=== PATIENT | male | born 1970 | race Two or more races ===

== ENCOUNTER 2020-08-25 18:10 | Inpatient (IN) | payer BC, OTHER ==
[~2020-08-25] VITALS: Ht 175.3 cm; Wt 97.9 kg
[2020-08-25] MEDS ORDERED: AZITHROMYCIN 500MG/ 250ML 250 ML IV ONE (18:45)
[2020-08-25] MEDS ORDERED: ASCORBIC ACID 500 MG TAB PO ONE (18:45)
[2020-08-25] MEDS ORDERED: ZINC SULFATE 220mg CAP or TAB PO ONE (18:45)
[2020-08-25] MEDS ORDERED: DexAMETHasone SOD PHOS 10MG/1ML VIAL INJ IV ONE (18:45)
[2020-08-25] MEDS ORDERED: cefTRIAXone 1GM/50ML D5W 50 ML IV ONE (18:45)
[2020-08-25] MEDS ORDERED: ACETAMINOPHEN 325 MG TAB PO ONE (18:45)
[2020-08-25 19:15] LABS: Basophils # (auto) 0 10 ^3/uL (0-0.2); Basophils % (auto) 0.1 % (0.0-2.0); Eosinophils # (auto) 0 10 ^3/uL (0-0.8); Hematocrit 46.8 % (41.0-53.0); Hemoglobin 16.1 g/dL (13.5-17.5); Lymphocytes # (auto) 0.9 10 ^3/uL (0.4-5.4); Lymphocytes % (auto) 14.4 % (10.0-50.0); Mean Corpuscular Hemoglobin 29.6 pg (28.0-32.0); Mean Corpuscular Hgb Conc. 34.3 g/dL (32.0-36.0); Mean Corpuscular Volume 86.2 fL (80.0-100.0); Monocytes # (auto) 0.4 10 ^3/uL (0-1.3); Neutrophils # (auto) 4.9 10 ^3/uL (1.6-8.6); Neutrophils % (auto) 79.5 % (37.0-80.0); Nucleated Red Blood Cells % 0.1 %; Platelet Count (auto) 191 10^3/uL (140-450); Red Blood Cells 5.43 10^6/uL (4.5-5.90); White Blood Cell 6.2 10^3/uL (4.4-10.8)
[2020-08-25 19:26] LABS: Albumin 3.1 g/dL (3.4-5.0); Anion Gap 7 (5-15); Blood Urea Nitrogen 18 mg/dL (7-18); Calcium 8.1 mg/dL (8.5-10.1); Carbon Dioxide 25 mmol/L (21-32); Chloride 102 mmol/L (98-107); Glucose 245 mg/dL (74-106); Potassium 3.2 mmol/L (3.5-5.1); Sodium 134 mmol/L (136-145)
[2020-08-25 19:35] LABS: Alanine Aminotransferase 93 U/L (16-61); Alkaline Phosphatase 101 U/L (45-117); Aspartate Aminotransferase 88 U/L (15-37); BUN/Creatinine Ratio 16.8; Bilirubin, Total 0.4 mg/dL (0.2-1.0); CRP High Sensitivity 5.92 mg/dL (< 0.3); GFR African American 94 mL/min; GFR Non-African American 78 mL/min; Lactate Dehydrogenase 422 U/L (87-241); Total Protein 7.6 g/dL (6.4-8.2)
[2020-08-25] MEDS ORDERED: DEXTROSE (50%) 50ML SYRG IV PRN (19:45)
[2020-08-25] MEDS ORDERED: HYDROcodone-ACET 5/325MG TAB PO PRN (19:45)
[2020-08-25] MEDS ORDERED: ACETAMINOPHEN 500 MG TAB PO PRN (19:45)
[2020-08-25] MEDS ORDERED: DOCUSATE SOD 100 MG CAP PO PRN (19:45)
[2020-08-25] MEDS ORDERED: NITROGLYCERIN 0.4 MG SL TAB SL PRN (19:45)
[2020-08-25] MEDS ORDERED: ONDANSETRON HCL 4 MG/2 ML VIAL IV PRN (19:45)
[2020-08-25] MEDS ORDERED: MORPHINE SULF INJ 2 MG/ML SYRINGE 1ML IV PRN ×2 (19:45)
--- NOTE | 2020-08-25 20:08 | NUR ---
RT NOTE: PT ASSESSED FOR MDI TX, PT ON 2LPM NC SPO2 96% HR 78, RR 18. PT DENIES SOB AT THIS TIME. STATED HIS BREATHING IS FEELING BETTER. PT HAS NO PRIOR HX OF PULMONARY ISSUES BEFORE COVID RESULTS. PT NOTIFIED TO HAVE RT PAGED IF SOB OCCURS.
[2020-08-25] MEDS: ALBUTEROL SULF HFA 90MCG INH 200DOSE IN SCH (20:10)
[2020-08-25] MEDS: BUDESONIDE (INHALATION) 180 MCG IH IN SCH (20:10)
[2020-08-25 20:34] LABS: Magnesium 2.2 mg/dL (1.6-2.6)
[2020-08-25 22:00] VITALS: BP 116/73
[2020-08-25] MEDS: ACCU-CHEK COMFORT CURVE STRIP VI SCH (22:00)
--- NOTE | 2020-08-25 22:00 | NUR ---
MS/TELE admit from ER AMPO,SHAUNA admitted to tele/MS after SBAR received. Patient oriented to MARGOTH NUNEZ RN, room 245, bed B. Patient weighed by bedscale and encouraged to call if they need something. Pt is on 2L NC with even and unlabored respirations, tele box 18 showing SR in the 70's. All questions and concerns addressed, patient verbalized understanding. Bed locked, in lowest position, call light within reach, side rails up x2.
[2020-08-25 23:00] VITALS: BP 116/73
[2020-08-25] MEDS: InsuLIN REG 1unit/0.01ml Soln (100units/ml) SC SCH (23:01)
[2020-08-25 23:30] VITALS: BP 116/73
[2020-08-26] VITALS (13 sets, daily range): BP systolic 111–137; BP diastolic 65–89
--- NOTE | 2020-08-26 00:05 | NUR ---
Hospitalist paged Pt reporting having sleep apnea and using CPAP at home. No orders for CPAP for this pt
[2020-08-26] MEDS: InsuLIN REG 1unit/0.01ml Soln (100units/ml) SC SCH ×4 (06:56→21:54)
[2020-08-26] MEDS: ACCU-CHEK COMFORT CURVE STRIP VI SCH ×4 (06:56→21:52)
[2020-08-26] MEDS: BUDESONIDE (INHALATION) 180 MCG IH IN SCH ×2 (07:04→21:33)
[2020-08-26] MEDS: ALBUTEROL SULF HFA 90MCG INH 200DOSE IN SCH ×3 (07:04→21:33)
--- NOTE | 2020-08-26 07:04 | NUR ---
Respiratory note: FOUND PATIENT OFF CPAP, ON A 2L N/C. NO RESP DISTRESS NOTED. HR 91, RR 16, SPO2 95%. JEANETTE JUSTIN AT BEDSIDE. I SPOKE WITH RN ABOUT MOVING PATIENT TO A NEGATIVE PRESSURE ROOM IN ORDER FOR PATIENT TO CONTINUE USING CPAP AT NIGHT. JEANETTE JUSTIN STATED THERE WAS NO OPEN ROOMS THAT ARE NEGATIVE PRESSURE FOR PATIENT TO MOVE LAST NIGHT. RN STATED SHE WOULD SPEAK WITH CHARGE NURSE REGARDING MOVING PATIENT. WILL FOLLOW UP WITH DAYSHIFT RN. NO MDI'S AT BEDSIDE, WILL GET FROM PHARMACY.
[2020-08-26 07:21] LABS: Basophils # (auto) 0 10 ^3/uL (0-0.2); Basophils % (auto) 0.7 % (0.0-2.0); Eosinophils # (auto) 0 10 ^3/uL (0-0.8); Eosinophils % (auto) 0.1 % (0.0-7.0); Hematocrit 48.6 % (41.0-53.0); Hemoglobin 16.5 g/dL (13.5-17.5); Lymphocytes # (auto) 0.6 10 ^3/uL (0.4-5.4); Lymphocytes % (auto) 13.8 % (10.0-50.0); Mean Corpuscular Hemoglobin 29.4 pg (28.0-32.0); Mean Corpuscular Hgb Conc. 33.9 g/dL (32.0-36.0); Mean Corpuscular Volume 86.9 fL (80.0-100.0); Monocytes # (auto) 0.3 10 ^3/uL (0-1.3); Monocytes % (auto) 6.8 % (0.0-12.0); Neutrophils # (auto) 3.6 10 ^3/uL (1.6-8.6); Neutrophils % (auto) 78.6 % (37.0-80.0); Nucleated Red Blood Cells % 0.6 %; Platelet Count (auto) 203 10^3/uL (140-450); Red Blood Cells 5.59 10^6/uL (4.5-5.90); Red Cell Distribution Width 13.3 % (11.8-14.3); White Blood Cell 4.5 10^3/uL (4.4-10.8)
[2020-08-26 07:31] LABS: Albumin 3.2 g/dL (3.4-5.0); Calcium 8.5 mg/dL (8.5-10.1)
[2020-08-26 07:36] LABS: Bilirubin, Total 0.4 mg/dL (0.2-1.0); Total Protein 7.8 g/dL (6.4-8.2)
--- NOTE | 2020-08-26 09:10 | NUR ---
ROOM CHANGE Patient moved from room 245A to room 236. All personal belongings moved with patient.
[2020-08-26] MEDS: ASCORBIC ACID 1,000 MG TAB PO SCH (09:30)
[2020-08-26] MEDS: CHOLECALCIFEROL (VITD3) 2,000 UNIT CAP PO SCH (09:30)
[2020-08-26] MEDS: DexAMETHasone SOD PHOS 10MG/1ML VIAL INJ IV SCH (09:30)
[2020-08-26] MEDS: FAMOTIDINE 20 MG TAB PO SCH (09:30)
[2020-08-26] MEDS: DOXYCYCLINE 100MG/250ML 250 ML IV SCH ×2 (09:30→21:53)
[2020-08-26] MEDS: ZINC SULFATE 220mg CAP or TAB PO SCH (09:30)
--- NOTE | 2020-08-26 09:30 | NUR ---
Patients 02 @ 89% on 2L NC, increased to 3L NC, 02 at 92%. Will continue to monitor
[2020-08-26] MEDS ORDERED: INFLUENZA QUAD 2020-2021 0.5 ML SYRG IM ONE (10:00)
[2020-08-26] MEDS ORDERED: ENOXAPARIN SOD 40 MG/0.4 ML SYRINGE SC SCH (10:00)
--- NOTE | 2020-08-26 11:15 | NUR ---
Patients 02 @ 90% on 3L NC, increased to 4L NC, 02 @ 92%. Will continue to monitor.
--- NOTE | 2020-08-26 15:30 | NUR ---
Patients 02 at 91% with SOB, placed on 6L oxymizer, 02 at 95%. SOB resolved. Will continue to monitor.
[2020-08-26] MEDS ORDERED: FUROSEMIDE 20 MG/2 ML VIAL IV ONE (15:45)
[2020-08-26] MEDS ORDERED: POTASSIUM CHL 10 Meq TABLET PO ONE (15:45)
[2020-08-26] MEDS ORDERED: METF-929 PO (15:50)
--- NOTE | 2020-08-26 15:50 | NUR ---
Dr Jay called with orders placed for patient. updated on patient status
[2020-08-26] MEDS ORDERED: ATOR20TA50 PO (15:58)
--- NOTE | 2020-08-26 16:07 | NUR ---
PLASMA Patient completed convalescent plasma with no reactions. Will continue to monitor.
--- NOTE | 2020-08-26 16:11 | NUR ---
REMDESIVIR Faxed signed authorization to pharmacy for Remdesivir. Authorization in patient chart
[2020-08-26] MEDS ORDERED: REMDESIVIR 200 MG in NS 210ml LOADING DOSE ADULT IV ONE (17:00)
--- NOTE | 2020-08-26 19:10 | NUR ---
Opening Shift Note Received report from mac Downing RN. Assumed care of patient, awake and alert. No S/S of distress/SOB or pain. Saturating at 95 on 5L Oxymizer. Instructed on POC and to call for assist PRN, will continue to monitor for changes Q1hr and PRN. Bed placed in lowest position and call light within reach.
--- NOTE | 2020-08-26 20:00 | NUR ---
Patient refused flu shot stating that it will make him sick and feverish. Will monitor
[2020-08-26] MEDS: guaiFENesin-DM 100/10mg/5ml SYR PO PRN (21:52)
[2020-08-26] MEDS: ENOXAPARIN SOD 100 MG/1 ML SYRINGE SC SCH (21:52)
[2020-08-26] MEDS: INSULIN LANTUS (GLARGINE) 1 /0.01ml (100units/ml) SC SCH (21:56)
[2020-08-27 06:00] VITALS: BP 114/70
[2020-08-27] MEDS: ALBUTEROL SULF HFA 90MCG INH 200DOSE IN SCH ×4 (06:15→21:40)
[2020-08-27] MEDS: BUDESONIDE (INHALATION) 180 MCG IH IN SCH ×3 (06:15→21:40)
[2020-08-27] MEDS: ACCU-CHEK COMFORT CURVE STRIP VI SCH ×4 (06:23→22:34)
[2020-08-27] MEDS: guaiFENesin-DM 100/10mg/5ml SYR PO PRN ×2 (06:23→12:46)
[2020-08-27] MEDS: InsuLIN REG 1unit/0.01ml Soln (100units/ml) SC SCH ×4 (06:25→22:54)
[2020-08-27 07:01] LABS: Potassium 3.5 mmol/L (3.5-5.1)
[2020-08-27 07:08] LABS: Albumin 2.9 g/dL (3.4-5.0); BUN/Creatinine Ratio 25.3; Bilirubin, Total 0.4 mg/dL (0.2-1.0); Calcium 8.7 mg/dL (8.5-10.1); Total Protein 7.2 g/dL (6.4-8.2)
[2020-08-27 08:30] VITALS: BP 119/69
[2020-08-27] MEDS: ENOXAPARIN SOD 100 MG/1 ML SYRINGE SC SCH ×2 (08:43→22:34)
[2020-08-27] MEDS: FUROSEMIDE 20 MG/2 ML VIAL IV SCH (08:43)
[2020-08-27] MEDS: DexAMETHasone SOD PHOS 10MG/1ML VIAL INJ IV SCH (08:43)
[2020-08-27] MEDS: ZINC SULFATE 220mg CAP or TAB PO SCH (08:43)
[2020-08-27] MEDS: POTASSIUM CHL 10 Meq TABLET PO SCH (08:44)
[2020-08-27] MEDS: FAMOTIDINE 20 MG TAB PO SCH (08:44)
[2020-08-27] MEDS: CHOLECALCIFEROL (VITD3) 2,000 UNIT CAP PO SCH (08:44)
[2020-08-27] MEDS: ASCORBIC ACID 1,000 MG TAB PO SCH (08:44)
[2020-08-27] MEDS: DOXYCYCLINE 100MG/250ML 250 ML IV SCH (08:45)
--- NOTE | 2020-08-27 11:20 | NUR ---
ROUNDING MD SOLOMON AT BEDSIDE. UPDATED ON PATIENT STATUS. ALL QUESTIONS AND CONCERNS ADDRESSED AT THIS TIME
[2020-08-27 13:00] VITALS: BP 120/74
[2020-08-27] MEDS ORDERED: POTASSIUM CHL 20 Meq TABLET PO ONE (13:15)
[2020-08-27] MEDS ORDERED: PIPERACILLIN-TAZOB 3.375GM 100 ML IV ONE (13:15)
--- NOTE | 2020-08-27 14:25 | NUR ---
Opening Shift Note Assumed care of patient, awake and alert. No complaints of pain. Patient currently states "I am very out of breath" spo2 86% on 5L Oxymizer. Patient titrated to 8L oxymizer with spo2 93%. Instructed on POC and to call for assist PRN, will continue to monitor for changes Q1hr and PRN.
[2020-08-27] MEDS: PIPERACILLIN-TAZOB 3.375GM 100 ML IV SCH ×3 (14:30→20:04)
[2020-08-27] MEDS: PROMETHAZINE W/CODEINE 5 ML ORAL SYRUP PO PRN ×2 (14:31→22:55)
[2020-08-27 17:03] VITALS: BP 112/73
[2020-08-27] MEDS: REMDESIVIR 100mg in NS 230ml DAILYx4DAYS (NO VENT) IV SCH (17:26)
--- NOTE | 2020-08-27 17:26 | NUR ---
PREINFUSION VITAL SIGNS BP 112/73 HR 74
--- NOTE | 2020-08-27 19:45 | NUR ---
OPENING SHIFT NOTE Assumed care of patient who is A&O x4. Currently on 8L via Oxymizer. Reports SOB on exertion and dry cough. Spo2 is 97%, titrated down to 7L. Continuous pulse oximeter in place. Patient denies pain at this time. PIV in left forearm is intact and patent. Flushed with 10ml NS. POC discussed and all questions answered. Bed is in low locked position with side rails up x2. Call light is within reach and patient encouraged to call for assistance when needed. Will continue to monitor for changes PRN.
[2020-08-27 20:00] VITALS: BP 111/76
--- NOTE | 2020-08-27 21:15 | NUR ---
FAMILY Received call from Patient's . Verified password and provided update. Patient requesting to speak with attending MD and Clamshell Engineer tomorrow. Will Pass on to day shift RN.
[2020-08-27 22:00] VITALS: BP 118/47
[2020-08-27] MEDS: INSULIN LANTUS (GLARGINE) 1 /0.01ml (100units/ml) SC SCH (22:54)
--- NOTE | 2020-08-27 23:30 | NUR ---
O2 SATURATION Patient's O2 saturation decreasing to 88% Patient found sleeping on right side with Oxymizer at patient's chin. Oxymizer replaced and increased back to 8L. Spo2 increased to 95% Will continue to monitor.
[2020-08-28] MEDS: PIPERACILLIN-TAZOB 3.375GM 100 ML IV SCH ×4 (01:50→20:08)
[2020-08-28 05:56] VITALS: BP 113/78
[2020-08-28] MEDS: ACCU-CHEK COMFORT CURVE STRIP VI SCH ×4 (06:16→21:51)
[2020-08-28] MEDS: BUDESONIDE (INHALATION) 180 MCG IH IN SCH ×2 (06:26→21:27)
[2020-08-28] MEDS: ALBUTEROL SULF HFA 90MCG INH 200DOSE IN SCH ×3 (06:26→21:27)
[2020-08-28] MEDS: InsuLIN REG 1unit/0.01ml Soln (100units/ml) SC SCH ×4 (06:28→21:53)
[2020-08-28 07:05] LABS: Potassium 3.8 mmol/L (3.5-5.1)
[2020-08-28] MEDS: PROMETHAZINE W/CODEINE 5 ML ORAL SYRUP PO PRN (07:11)
[2020-08-28 07:16] LABS: Albumin 2.8 g/dL (3.4-5.0); BUN/Creatinine Ratio 25.5; Bilirubin, Total 0.5 mg/dL (0.2-1.0); Calcium 8.5 mg/dL (8.5-10.1)
--- NOTE | 2020-08-28 07:29 | NUR ---
OPENING SHIFT NOTE Assumed care of patient who is A&O x4. Currently on 12L via Oxymizer. Reports SOB on exertion and dry cough. Spo2 is 96%, titrated down to 8L. Continuous pulse oximeter in place. Patient denies pain at this time. POC discussed and all questions answered. Bed is in low locked position with side rails up x2. Call light is within reach and patient encouraged to call for assistance when needed. Will continue to monitor for changes PRN.
[2020-08-28 08:32] VITALS: BP 111/66
[2020-08-28] MEDS: FUROSEMIDE 20 MG/2 ML VIAL IV SCH (09:25)
[2020-08-28] MEDS: ZINC SULFATE 220mg CAP or TAB PO SCH (09:25)
[2020-08-28] MEDS: POTASSIUM CHL 10 Meq TABLET PO SCH (09:25)
[2020-08-28] MEDS: ENOXAPARIN SOD 100 MG/1 ML SYRINGE SC SCH ×2 (09:26→21:56)
[2020-08-28] MEDS: ASCORBIC ACID 1,000 MG TAB PO SCH (09:26)
[2020-08-28] MEDS: FAMOTIDINE 20 MG TAB PO SCH (09:26)
[2020-08-28] MEDS: CHOLECALCIFEROL (VITD3) 2,000 UNIT CAP PO SCH (09:26)
[2020-08-28] MEDS: DexAMETHasone SOD PHOS 10MG/1ML VIAL INJ IV SCH (11:55)
[2020-08-28 12:34] VITALS: BP 111/73
[2020-08-28] MEDS ORDERED: FUROSEMIDE 20 MG/2 ML VIAL IV ONE (13:30)
[2020-08-28 16:38] VITALS: BP 119/77
[2020-08-28] MEDS: REMDESIVIR 100mg in NS 230ml DAILYx4DAYS (NO VENT) IV SCH (16:48)
--- NOTE | 2020-08-28 16:48 | NUR ---
pre-infusion vital signs BP 119/77 HR 91
--- NOTE | 2020-08-28 17:03 | NUR ---
15-min vitals BP 113/71 HR 82
--- NOTE | 2020-08-28 17:48 | NUR ---
post-infusion vital signs BP 116/88 HR 81
[2020-08-28 21:27] VITALS: BP 110/75
[2020-08-28] MEDS: INSULIN LANTUS (GLARGINE) 1 /0.01ml (100units/ml) SC SCH (21:52)
[2020-08-28 21:58] VITALS: BP 110/75
[2020-08-29] MEDS: PIPERACILLIN-TAZOB 3.375GM 100 ML IV SCH ×4 (02:00→20:28)
[2020-08-29] MEDS: ACCU-CHEK COMFORT CURVE STRIP VI SCH ×4 (06:24→22:30)
[2020-08-29] MEDS: InsuLIN REG 1unit/0.01ml Soln (100units/ml) SC SCH ×4 (06:29→22:57)
[2020-08-29] MEDS: BUDESONIDE (INHALATION) 180 MCG IH IN SCH ×2 (06:55→22:06)
[2020-08-29] MEDS: ALBUTEROL SULF HFA 90MCG INH 200DOSE IN SCH ×3 (06:55→22:06)
--- NOTE | 2020-08-29 07:15 | NUR ---
Opening Shift Note Assumed care of patient, awake and alert. A/O X 4. No S/S of distress/SOB or pain. Patient on 8L Oxymizer. Instructed on POC and reinforced teaching on the use of the incentive spirometer. Prone positioning also encouraged throughout the day. Patient verbalized understanding. Safety measures in place and the call light is within reach of the patient. Will continue to monitor for changes Q1hr and PRN.
[2020-08-29 08:00] VITALS: BP 110/75
[2020-08-29 08:32] LABS: Albumin 2.9 g/dL (3.4-5.0); Calcium 8.8 mg/dL (8.5-10.1); Potassium 3.5 mmol/L (3.5-5.1)
[2020-08-29 08:37] LABS: BUN/Creatinine Ratio 24.1; Bilirubin, Total 0.6 mg/dL (0.2-1.0); Total Protein 7.5 g/dL (6.4-8.2)
[2020-08-29 09:00] VITALS: BP 104/68
[2020-08-29] MEDS: FAMOTIDINE 20 MG TAB PO SCH (10:01)
[2020-08-29] MEDS: CHOLECALCIFEROL (VITD3) 2,000 UNIT CAP PO SCH (10:01)
[2020-08-29] MEDS: DexAMETHasone SOD PHOS 10MG/1ML VIAL INJ IV SCH (10:02)
[2020-08-29] MEDS: FUROSEMIDE 40 MG/4 ML VIAL IV SCH (10:04)
[2020-08-29] MEDS: POTASSIUM CHL 10 Meq TABLET PO SCH (10:05)
[2020-08-29] MEDS: ZINC SULFATE 220mg CAP or TAB PO SCH (10:05)
[2020-08-29] MEDS: ENOXAPARIN SOD 100 MG/1 ML SYRINGE SC SCH ×2 (10:06→22:30)
[2020-08-29] MEDS: ASCORBIC ACID 1,000 MG TAB PO SCH (10:06)
--- NOTE | 2020-08-29 11:40 | NUR ---
Doctors rounding Dr. Zuluaga ans Dr. Jay at bedside discussing the POC with the patient. All questions and concerns were answered at this time. Doctor's informed on the 's request to speak to one of them concerning her 's care.
--- NOTE | 2020-08-29 12:50 | NUR ---
Prone position Patient currently lying in prone position.
[2020-08-29 13:00] VITALS: BP 109/78
--- NOTE | 2020-08-29 13:50 | NUR ---
Spoke with family Spoke with family concerning the patient's status and their request to speak with the doctor. Family was updated on new orders, medication and goals prior to discharge. Family was also notified that the doctor was told about their request and that their request will continue to be addressed with the doctor at the time of rounding. Family expressed concern and their understanding of the current situation. Charge and director have been made aware.
--- NOTE | 2020-08-29 14:00 | NUR ---
Nutrition Assessment Est energy needs 1030-3571 kcal (18-20 kcal/kg BW 98.4kg) Est protein needs 66-79g (1-1.2g/kg IBW 66kg) Will monitor and reassess prn. Addendum: 08/29/20 at [address] Amended: Links added.
[2020-08-29 16:59] VITALS: BP 109/72
[2020-08-29] MEDS: REMDESIVIR 100mg in NS 230ml DAILYx4DAYS (NO VENT) IV SCH (17:30)
[2020-08-29 22:00] VITALS: BP 103/70
--- NOTE | 2020-08-29 22:06 | NUR ---
PT RINSED OUT HIS MOUTH POST PULMICORT MDI Addendum: 08/30/20 at 0031 by MERLINE REYES RT Amended: Links added.
[2020-08-29] MEDS: INSULIN LANTUS (GLARGINE) 1 /0.01ml (100units/ml) SC SCH (23:30)
[2020-08-30] MEDS: PIPERACILLIN-TAZOB 3.375GM 100 ML IV SCH ×4 (02:26→20:56)
[2020-08-30 05:00] VITALS: BP 104/75
[2020-08-30] MEDS: BUDESONIDE (INHALATION) 180 MCG IH IN SCH ×2 (06:20→22:13)
[2020-08-30] MEDS: ALBUTEROL SULF HFA 90MCG INH 200DOSE IN SCH ×3 (06:20→22:13)
[2020-08-30] MEDS: InsuLIN REG 1unit/0.01ml Soln (100units/ml) SC SCH ×4 (06:36→22:50)
[2020-08-30] MEDS: ACCU-CHEK COMFORT CURVE STRIP VI SCH ×4 (06:36→22:00)
[2020-08-30 07:41] LABS: Magnesium 2.8 mg/dL (1.6-2.6)
[2020-08-30 09:00] VITALS: BP 107/76
[2020-08-30 10:41] LABS: Albumin 2.9 g/dL (3.4-5.0); Calcium 8.8 mg/dL (8.5-10.1); Potassium 4.1 mmol/L (3.5-5.1)
[2020-08-30 10:46] LABS: BUN/Creatinine Ratio 27.3; Bilirubin, Total 0.7 mg/dL (0.2-1.0); Total Protein 7.4 g/dL (6.4-8.2)
[2020-08-30] MEDS: DexAMETHasone SOD PHOS 10MG/1ML VIAL INJ IV SCH (10:59)
[2020-08-30] MEDS: ZINC SULFATE 220mg CAP or TAB PO SCH (10:59)
[2020-08-30] MEDS: ENOXAPARIN SOD 100 MG/1 ML SYRINGE SC SCH ×2 (11:00→22:49)
[2020-08-30] MEDS: POTASSIUM CHL 10 Meq TABLET PO SCH (11:00)
[2020-08-30] MEDS: FAMOTIDINE 20 MG TAB PO SCH (11:00)
[2020-08-30] MEDS: ASCORBIC ACID 1,000 MG TAB PO SCH (11:00)
[2020-08-30] MEDS: CHOLECALCIFEROL (VITD3) 2,000 UNIT CAP PO SCH (11:00)
[2020-08-30] MEDS: FUROSEMIDE 40 MG/4 ML VIAL IV SCH (11:02)
[2020-08-30 12:49] VITALS: BP 105/66
--- NOTE | 2020-08-30 13:04 | NUR ---
Called [facility] - [phone] to inquire about coverage [place] home O2 [place], awaiting a call back.
--- NOTE | 2020-08-30 14:24 | NUR ---
Called [facility], left another vm requested a call back.
--- NOTE | 2020-08-30 15:09 | NUR ---
No call back from Insurance CM Faxed order and clinicals to [facility], requested portable to bedside and concentrator to home.
--- NOTE | 2020-08-30 15:40 | NUR ---
Called [facility] spoke with [facility], they will have a catering driver out within the next 2 hours to deliver the oxygen.
[2020-08-30 16:36] VITALS: BP 129/79
[2020-08-30] MEDS: REMDESIVIR 100mg in NS 230ml DAILYx4DAYS (NO VENT) IV SCH (16:44)
--- NOTE | 2020-08-30 17:00 | NUR ---
VITALS PRE REMDESEVIR- 112/77, HR 76, TEMP 97.9, SPO2 97%
--- NOTE | 2020-08-30 17:15 | NUR ---
VITALS STILL STABLE 114/71, HR 76, SPO02 96%, TEMP 97.8
--- NOTE | 2020-08-30 19:20 | NUR ---
Opening Shift Note Received report from mac Fields RN. Assumed care of patient, awake and alert. No S/S of distress/SOB or pain. On 4LNC saturating at 95%. Instructed on POC and to call for assist PRN, will continue to monitor for changes Q1hr and PRN. Bed placed in lowest position and call light within reach.
[2020-08-30 20:00] VITALS: BP 95/63
--- NOTE | 2020-08-30 21:18 | NUR ---
PT RINSED OUT HIS MOUTH POST PULMICORT Addendum: 08/30/20 at 2155 by MERLINE REYES RT Amended: Links added.
[2020-08-30 22:00] VITALS: BP 95/63
[2020-08-30] MEDS: INSULIN LANTUS (GLARGINE) 1 /0.01ml (100units/ml) SC SCH (22:48)
[2020-08-31] MEDS: PIPERACILLIN-TAZOB 3.375GM 100 ML IV SCH ×3 (02:37→13:52)
[2020-08-31 05:00] VITALS: BP 119/67
--- NOTE | 2020-08-31 06:00 | NUR ---
Patient is resting in bed with eyes closed, no distress noted and patient denies pain.
[2020-08-31] MEDS: ACCU-CHEK COMFORT CURVE STRIP VI SCH ×2 (06:23→11:30)
[2020-08-31] MEDS: InsuLIN REG 1unit/0.01ml Soln (100units/ml) SC SCH ×2 (06:25→12:41)
[2020-08-31] MEDS: ALBUTEROL SULF HFA 90MCG INH 200DOSE IN SCH ×2 (06:43→14:00)
[2020-08-31] MEDS: BUDESONIDE (INHALATION) 180 MCG IH IN SCH (06:43)
[2020-08-31 09:00] VITALS: BP 95/65
[2020-08-31] MEDS: FUROSEMIDE 40 MG/4 ML VIAL IV SCH (10:00)
--- NOTE | 2020-08-31 11:01 | NUR ---
Kareem GARZA AT BEDSIDE.
[2020-08-31] MEDS: ZINC SULFATE 220mg CAP or TAB PO SCH (11:38)
[2020-08-31] MEDS: DexAMETHasone SOD PHOS 10MG/1ML VIAL INJ IV SCH (11:38)
[2020-08-31] MEDS: POTASSIUM CHL 10 Meq TABLET PO SCH (11:39)
[2020-08-31] MEDS: ASCORBIC ACID 1,000 MG TAB PO SCH (11:39)
[2020-08-31] MEDS: CHOLECALCIFEROL (VITD3) 2,000 UNIT CAP PO SCH (11:39)
[2020-08-31] MEDS: FAMOTIDINE 20 MG TAB PO SCH (11:39)
[2020-08-31] MEDS: ENOXAPARIN SOD 100 MG/1 ML SYRINGE SC SCH (11:39)
[2020-08-31] MEDS ORDERED: POTA1TAB61 PO (11:53)
[2020-08-31] MEDS ORDERED: ALBUAER3 IN (11:53)
[2020-08-31] MEDS ORDERED: ZINC220T6 PO (11:53)
[2020-08-31] MEDS ORDERED: DOXY-286 PO (11:53)
[2020-08-31] MEDS ORDERED: ASCO10003 PO (11:53)
[2020-08-31] MEDS ORDERED: CHOL1CAP47 PO (11:53)
[2020-08-31] MEDS ORDERED: PANT40TA2 PO (11:53)
[2020-08-31] MEDS ORDERED: METH4PAK PO (11:53)
[2020-08-31] MEDS ORDERED: FURO1TAB33 PO (11:53)
[2020-08-31] MEDS ORDERED: BUDE2SUS3 IN (11:55)
[2020-08-31] MEDS ORDERED: ASPI-378 PO (11:55)
[2020-08-31 13:00] VITALS: BP_SYST 83; BP_SYST 99; BP_DIAS 50; BP_DIAS 69
--- NOTE | 2020-08-31 15:22 | NUR ---
Discharge instructions given as ordered. Encourage to follow up with PMD as instructed. Patient discharged with oxygen tank. instructed on proper use. Provided with all pertinent teaching in regards to new medications and importance of self isolation per m.d. orders. All questions and concerns addressed. Patient verbalized understanding. Medication reconciliation form completed and copy given to patient. IV removed with catheter intact, pressure dressing applied. Telemetry unit returned to ICU. Oxygen monitor removed Patient taken to vehicle via wheelchair with all personal belongings, accompanied by staff and family member. No distress noted at time of departure.
== END 2020-08-31 15:22 | disposition home or self-care (01) | DRG 871 ==
LOC: ER 18:10 → EDBD 18:11 → TELE 18:11 → TELE-EAST 21:45 → TELE-E-ADS 08-28 23:40
PROVIDERS: ADMIT Nurse Practitioner Acute Care; ATTEND Internal Medicine
PROC: XW13325 Transfusion of Convalescent Plasma (Nonautologous) into Peripheral Vein, Percutaneous Approach, New Technology Group 5 (ICD-10-PCS; principal; 2020-08-26)
PROC: XW033E5 Introduction of Remdesivir Anti-infective into Peripheral Vein, Percutaneous Approach, New Technology Group 5 (ICD-10-PCS; 2020-08-26)
PROC: 5A09357 Assistance with Respiratory Ventilation, Less than 24 Consecutive Hours, Continuous Positive Airway Pressure (ICD-10-PCS; 2020-08-26)
PROC: XW033E5 Introduction of Remdesivir Anti-infective into Peripheral Vein, Percutaneous Approach, New Technology Group 5 (ICD-10-PCS; 2020-08-27)
PROC: XW033E5 Introduction of Remdesivir Anti-infective into Peripheral Vein, Percutaneous Approach, New Technology Group 5 (ICD-10-PCS; 2020-08-28)
PROC: XW033E5 Introduction of Remdesivir Anti-infective into Peripheral Vein, Percutaneous Approach, New Technology Group 5 (ICD-10-PCS; 2020-08-29)
PROC: XW033E5 Introduction of Remdesivir Anti-infective into Peripheral Vein, Percutaneous Approach, New Technology Group 5 (ICD-10-PCS; 2020-08-30)
DX: A41.89 Other specified sepsis (principal); U07.1 COVID-19; J12.89 Other viral pneumonia; J96.01 Acute respiratory failure with hypoxia; E11.9 Type 2 diabetes mellitus without complications; E66.9 Obesity, unspecified; E78.5 Hyperlipidemia, unspecified; K76.0 Fatty (change of) liver, not elsewhere classified; Z79.84 Long term (current) use of oral hypoglycemic drugs; Z83.3 Family history of diabetes mellitus; Z68.31 Body mass index [BMI] 31.0-31.9, adult; Z79.899 Other long term (current) drug therapy
CPT/HCPCS: 36415; 36600; 71045; 71250; 80053; 80061; 82728; 82805; 82962; 83036; 83605; 83615; 83735; 83880; 84132; 84484; 85025; 85379; 86141; 86850; 86900; 86901; 87040; 87426; 87804; 93005; 93970; 94640; 94660; 96365; 96375; G0378; J0696; J1100; J1815; J2543; J3490